=== PATIENT | female | born 2005 ===

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

== ENCOUNTER 2025-02-01 14:29 | Outpatient (AMB) | payer OTHER, SELFPAY ==
--- NOTE | 2025-02-01 14:32 | MHC.OFFVIS ---
Vital Signs 02/01/25 14:34 Height 5 ft 4 in Weight 214 lb 15.211 oz BMI 36.9 BP 123/74 Blood Pressure Location Lt brachial Pulse 83 Pulse Source Pulse Oximeter Pulse Oximetry (%) 98 Oxygen Delivery Method Room Air Intake Visit Reasons: Pituitary adenoma Intake Note: New patient present today for Pituitary adenoma office visit. Quiller Operator Required: No Accompanied by: Mother Allergies No Known Allergies (No Known Allergies*) Allergy (Verified 02/01/25 14:37) Medication List - Last Reconciled 02/01/25 by Guadalupe Hardin MD ibuprofen 400 mg PO Q6H PRN prochlorperazine maleate 10 mg PO Q6H PRN HPI Comments Details: 19-year-old female coming in today for initial evaluation of pituitary microadenoma. Here today with grandmother Jennyfer. She was hospitalized at [facility] from 10/29/2024 to 11/01/2024 when she presented for dizziness, nausea, vomiting, with the MRI findings consistent with a demyelinating lesions concerning for multiple sclerosis. She was initially seen at another hospital in September 2024 for these symptoms with a an unremarkable CT scan but did have supratentorial and infratentorial FLAIR changes on MRI without gadolinium on 10/16 but then she left A. She presented to [facility] emergency room 10/25/2024 with persistent symptoms. MRI with and without gadolinium showed multiple white matter lesions, CSF studies not concerning for infection. Patient was treated with high dose IV Solu-Medrol for 5 days with the improvement in her symptoms at the time of discharge. She is now seeing neurology at [facility] Dr. Nessa Hammer , last seen November 2024. Diagnosed with MS. started on ocrevus infusion. plan is for every 6 months treatment. MRI brain from 10/26/2024 showed a incidental 4 mm hypoenhancing focus in the pituitary gland suspicious for pituitary microadenoma. No suprasellar or cavernous sinus extension. Vision changes: blurry vision. improved with treatment for MS Headache: some intermittent headaches since early in 2024, resolve with ibuprofen Nipple discharge: none Trial Judge history: LMP: 3 years ago , on Depo shots, gets it every 3 months from PCP Pregnancies : 0 Currently sexually active Change in sense of smell:feels there has been decreased intensity Change in ring size: doesnt wear a ring Change in shoe size: none Reports night sweats. Patient currently denies heat or cold intolerance, diarrhea or constipation, hair loss, palpitation, anxiety, weight changes, mood changes, tremors,or dry skin. Reports tiredness ? Numbness in extremities resolved with MS trx. Easy bruising: yes Proximal muscle weakness: none No DM, HTN, fractures Nausea: yes in the morning , on antinausea meds Vomiting:none Lightheadedness: none Weight: no changes Physical exam General: sitting comfortably in no acute distress HEENT: normocephalic/atraumatic Neck: supple, symmetrical, no thyromegaly , Cardiac: normal heart sounds Pulm: normal breath sounds B/L, no added breath sounds Abd: not distended, no tenderness, striae noted but not thick or purple Extremities: no edema, no signs of myxedema [facility] Medical History (Updated 02/01/25 @ 15:10 by Guadalupe Hardin MD) Pituitary microadenoma Asthma Multiple sclerosis Family History (Updated 02/01/25 @ 14:42 by Gwendolyn Peter CMA) Mother Diabetes Hypertension Maternal Aunt Hodgkin disease Social History Alcohol intake: never Substance Use Type: Marijuana Physical Exam Vital Signs: Last Vital Signs Pulse 83 02/01/25 14:34 BP 123/74 02/01/25 14:34 Pulse Ox 98 02/01/25 14:34 Oxygen Delivery Method Room Air 02/01/25 14:34 BMI result Body Mass Index 36.9 Assessment & Plan Assessment & Plan (1) Pituitary microadenoma: Code(s): D35.2 - Benign neoplasm of pituitary gland Category: Medical Plan: 19-year-old female coming in today for initial evaluation of pituitary incidentaloma. MRI brain from 10/26/2024 showed a incidental 4 mm hypoenhancing focus in the pituitary gland suspicious for pituitary microadenoma. No suprasellar or cavernous sinus extension. She also has a new diagnosis of multiple sclerosis, undergoing treatment with neurology at [facility]. Given small size of the adenoma, no need for visual field evaluation, she did have some blurry vision at the time of onset of her MS episode, which has now resolved. She does complain of some intermittent headaches. However for pituitary microadenoma we do not need visual field evaluation in the absence of gross visual field defects. We will plan to repeat imaging in 1 year from the last 1 which should be around October 2025. For evaluation of hormonal secretion, we will check 24 hour urine cortisol levels. She does have some abdominal striae though not thick or purple. However BMI is in the obesity range, but no history of diabetes or hypertension, no fractures. She is on medroxyprogesterone IM every 3 months. We will check a 24 hour urine cortisol level. We will check prolactin, growth hormone level, FSH LH, estradiol however we have to keep in mind she is on progesterone intramuscularly. We will check a.m. ACTH and cortisol. No recent steroid use the last time she received IV Solu-Medrol was for 5 days in October 2024. I explained to the patient that Incidentally discovered sellar masses >10 mm in diameter are more likely to grow than those <10 mm. Plan: -ordered 08:00 labs including ACTH, cortisol, prolactin, IGF, growth hormone, FSH, LH, estradiol, TSH, free T4 -ordered 24 hour urine cortisol and creatinine -follow up in 2-3 weeks to discuss results -we will plan to do MRI of the pituitary in 1 year from last 1 which would be in October 2025 Plan I spent 45 minutes in reviewing the record, seeing the patient and documenting in the medical record. Orders: Orders Cortisol Random Today D35.2 - Benign neoplasm of pituitary gland DHEA Sulfate Today D35.2 - Benign neoplasm of pituitary gland Follicle Stimulating Hormone Today D35.2 - Benign neoplasm of pituitary gland Prolactin Today D35.2 - Benign neoplasm of pituitary gland Estradiol Ultra Sensitive Today D35.2 - Benign neoplasm of pituitary gland Lutenizing Hormone Today D35.2 - Benign neoplasm of pituitary gland Human Growth Hormone Today D35.2 - Benign neoplasm of pituitary gland IGF-1 (Somatomedin C) Today D35.2 - Benign neoplasm of pituitary gland Thyroid Stimulating Hormone Today D35.2 - Benign neoplasm of pituitary gland Cortisol, Free 24Hr Urine Today D35.2 - Benign neoplasm of pituitary gland Creatinine, 24 Hr Group Today D35.2 - Benign neoplasm of pituitary gland Adrenocorticotropic Hormone Today D35.2 - Benign neoplasm of pituitary gland Free T4 (Free Thyroxine) Today D35.2 - Benign neoplasm of pituitary gland Patient Instructions: Do 08:00 blood work this week Also please do 24 hour urine collection this week instructions provided below 24 hr urine collection instructions You have been asked to collect your urine for 24 hours to assess for cortisol excretion. You must choose a 24 hour period of time when you will be home. The morning of the first day, DISCARD the FIRST morning void and then note the time. You will collect every single void from then on for 24 hours. For example, if you wake up at 6am and urinate, flush down that void. You will then collect every drop of urine all day and all night through 6am the following day. You will urinate one last time at 6am for the collection. The jug of urine must be kept in the refrigerator until you bring it to the lab. Coding Level of Care Code New Pt Level 4 (96851) Diagnoses Pituitary microadenoma D35.2 Time Spent (min) 45
[2025-02-01 14:34] VITALS: BP 123/74; PULSE 83; O2SAT 98; BMI 36.9
--- OUTSIDE RECORDS SUMMARY | 2025-02-01 17:22 | XMS_ITS ---
Author Name [facility] Organization Unknown Results Test Name/Text Value Interpretation Date Range Source LUIS MIGUEL virus Ab Index SerPl IA-aCnc 2.8 Above high normal 11/18/2024 CT_[facility]SFRA N JCPyV Ab SerPl Ql IA POSITIVE Abnormal 11/18/2024 CT_[facility]SFRAN ROMY SM IgG Ser IA-aCnc <0.7 11/16/2024 [facility] ROMY Jo1 Ab Ser IA-aCnc <0.3 11/16/2024 CT_[facility]SFRAN U1 snRNP IgG Ser IA-aCnc 0.6 U/mL 11/16/2024 - [facility] ROMY SS-B IgG Ser IA-aCnc <0.4 11/16/2024 [facility]AN ROMY Scl70 IgG Ser IA-aCnc <0.6 11/16/2024 [facility] ROMY SS-A Ab Ser IA-aCnc <0.4 11/16/2024 [facility]SFRAN RAMOS Pat Ser IF-Imp Homogeneous Abnormal 11/15/2024 [facility]AN RAMOS Titr Ser HEp2 subst 1:320 Abnormal 11/15/2024 - [facility] RAMOS Ser Ql HEp2 subst Positive Abnormal 11/15/2024 - CT_[facility]AN HIV 1+2 Ab+HIV1 p24 Ag SerPl Ql IA Negative 11/12/2024 - [facility]AN RPR Ser Ql Nonreactive 11/12/2024 - CT_[facility]S LEESA B burgdor IgG Ser Ql Negative 11/11/2024 - CT_[facility]SFRAN B burgdor IgM Ser Ql Negative 11/11/2024 - CT_[facility]SFRAN TSH SerPl DL<=0.005 mIU/L-aCnc 0.72 mcIU/mL 11/11/2024 0.45 - 5.33 CT_THSFRAN 25(OH)D3 SerPl-mCnc <10.0 ng/mL Below low normal 11/11/2024 30 - 100 CT_[facility]SFRAN Vit B12 SerPl-mCnc 195.0 pcg/mL 11/11/2024 180 - 914 CT_THSFRAN Rheumatoid fact SerPl-aCnc <10.0 I Unit/mL 11/11/2024 - CT_THSFRAN History of Medication Use Medication Directions Dispensed Refills Start Date End Date Stat us ibuprofen (ADVIL,MOTRIN) 400 mg tablet Take 1 tablet (400 mg total) by mouth every 6 (six) hours if needed for mild pain. active meclizine (ANTIVERT) 12.5 mg tablet Take 1 tablet (12.5 mg total) by mouth 3 (three) times a day if needed for dizziness. active ondansetron (ZOFRAN) 4 mg tablet Take 1 tablet (4 mg total) by mouth every 8 (eight) hours if needed for nausea or vomiting. active Problems Problem Status Onset Date Problem Type Date of Resolution Source Vitamin B12 deficiency active EncounterDiagnosisAct CT_[facility]S LEESA Demyelinating changes in brain ([facility] V24, [facility] V28) active EncounterDiagnosisAct C T_THSFRAN Hyporeflexia active EncounterDiagnosisAct CT_THSFRAN Routine screening for STI (sexually transmitted infection) active EncounterDiagnosisAct CT_[facility]S LEESA Vitamin D insufficiency active EncounterDiagnosisAct CT_TH SFRAN Risk of exposure to Lyme disease active EncounterDiagnosisAct CT_THS LEESA Multiple sclerosis ([facility] V24, [facility] V28) active EncounterDiagnosisAct CT_[facility]S LEESA Abnormal tandem gait test active EncounterDiagnosisAct CT_[facility]S LEESA Encounter for screening for human immunodeficiency virus (HIV) active EncounterDiagnosisAct CT_THS LEESA Encounters Encounter Type Encounter Reason Primary Diagnosis Location Date Ambulatory Multiple Sclerosis Multiple scle rosis ([facility] V24, [facility] V28) [facility] 11/11/2024 Care Team Organization Name Specialty Phone Email Start Date End Da te [facility] 11/12/2024 [facility] 11/11/2024
--- OUTSIDE RECORDS SUMMARY | 2025-02-01 17:22 | XMS_ITS | Clinical Summary ---
Author Organization [address] Address [address] [place] [address] Phone Care Team Providers Care [employer] Member Name Role Phone Leanna Burt [facility] Primary Care Provider [phone] Allergies No known active allergies Medications meclizine (ANTIVERT) 12.5 mg tablet Take 1 tablet (12.5 mg total) by mouth 3 (three) times a day if needed for dizziness. Active ibuprofen (ADVIL,MOTRIN) 400 mg tablet Take 1 tablet (400 mg total) by mouth every 6 (six) hours if needed for mild pain. Active ergocalciferol (Vitamin D2) 1,250 mcg (50,000 unit) capsuleIndicati ons:Vitamin D deficiency Take 1 capsule (50,000 Units total) by mouth 1 (one) time per week for 12 doses. 12 each 11/12/2024 01/30/20 25 Active Problems Problem Noted Date Diagnosed Date MS (multiple sclerosis) 01/13/2025 Encounters Date Type Department Care Team Description 01/20/2025 8:00 AM EDT - 01/20/2025 11:59 PM EDT Hospital Encounter [facility] Outpatient Rehabilititation [facility] [address] [place] [phone] MS (multiple sclerosis) (Primary Dx) Discharge Disposition: Home or Self Care 12/09/2024 Telephone [facility] Outpatient Rehabilititation [facility] [address] [place] [phone] Carl Hammer MD 12/08/2024 3:05 PM EDT Lab Draw Station - 175 [facility] 175 [facility] [address] [place] [phone] Multiple sclerosis ([facility] V24, [facility] V28) 12/08/2024 2:00 PM EDT Office Visit [facility] [address] [facility] [address] [place] [phone] Carl Hammer MD Multiple sclerosis ([facility] V24, [facility] V28) (Primary Dx) 12/08/[address] [facility] 175 [facility] [address] [place] [phone] Carl Hammer MD 11/11/2024 2:00 PM EDT Office Visit [address] [phone] Robert Watters MD Multiple sclerosis ([facility] V24, [facility] V28) (Primary Dx); Demyelinating changes in brain ([facility] V24, [facility] V28); Abnormal tandem gait test; Hyporeflexia; Vitamin D insufficiency; Vitamin B12 deficiency; Encounter for screening for human immunodeficiency virus (HIV); Routine screening for STI (sexually transmitted infection); Risk of exposure to Lyme disease from Last 3 Months Medical History Medical History Date Comments Asthma Family History Medical History Relation Name Comments Diabetes Maternal Grandmother Relation Name Status Comments Maternal Grandmother Social History Tobacco Use Types Packs/Day Years Used Date Smoking Tobacco: Never Smokeless Tobacco: Never Tobacco Cessation:Counseling Given: Not Answered Alcohol Use Standard Drinks/Week Comments Not Currently 0 (1 standard drink = 0.6 oz pur e alcohol) Comments Unknown Sex and Gender Information Value Date Recorded Sex Assigned at Not on file Legal Sex Female 9:53 AM EDT Gender Identity Not on file Sexual Orientation Not on file Obstetrics History Growth Chart Information Age Height Weight [id number]-[id number]-[id number] th Percentile BMI Percentile Head Circum Head Circum Percentile Date 19 years 162.6 cm (5' 4 ) 98 kg (216 lb) 97.66%* 2024 19 years 162.6 cm (5' 4 ) 88.5 kg (195 lb) 96.04%* 2024 * [facility] (Girls, 2-20 Years) Last Filed Vital Signs Vital Sign Reading Time Taken Comments Blood Pressure 109/69 01/20/2025 12:55 PM EDT Pulse 73 01/20/2025 12:55 PM EDT Temperature 36.4 C (97.6 F) 01/20/2025 12:55 PM EDT Respiratory Rate 17 01/20/2025 12:55 PM EDT Oxygen Saturation 96% 01/20/2025 12:55 PM EDT Inhaled Oxygen Concentration - - Weight 98 kg (216 lb) 12/08/2024 2:09 PM EDT Height 162.6 cm (5' 4 ) 12/08/2024 2:09 PM EDT Body Mass Index 37.08 12/08/2024 2:09 PM EDT Plan of Treatment Upcoming Encounters Date Type Department Care Team (Late st Contact Info) Description 02/08/2025 8:00 AM EDT Appointment [facility] Outpatient Rehabilititation - [address] [phone] 03/15/2025 3:30 PM EST Office Visit [facility] - [address] [phone] Carl Hammer MD [address] [place] [phone] Health Maintenance Due Date Last Done Comments Gonorrhea/Chlamydia Screening 2005 Varicella Vaccines (1 of 2 - 13+ 2-dose series) 2018 HPV Vaccines (1 - 3-dose series) 2020 Meningococcal B Vaccine (1 o f 2 - Standard) 2021 DTaP,Tdap,and Td Vaccines (1 - Tdap) 2024 Hepatitis B Vaccines (1 of 3 - 19+ 3-dose series) 2024 Depression Screening 04/21/2024 Annual Well Child Visit (3-2 1 years old) 11/02/2024 Social Influencers of Health Screening 11/02/2024 COVID-19 Vaccine (1 - 2023-2 5 season) 2024 Influenza Vaccine (#1) 2024 RSV Immunization Adult Patie nts (1 - 1-dose 75+ series) 2080 HIV Screening Completed 11/11/2024 Hepatitis C Screening Completed 12/08/2024 HIB Vaccines Aged Out No longer eligi ble based on patient's age to complete this topic Hepatitis A Vaccines Aged Out No long er eligible based on patient's age to complete this topic IPV Vaccines Aged Out No longer eligi ble based on patient's age to complete this topic MMR Vaccines Aged Out No longer eligi ble based on patient's age to complete this topic Meningococcal ACWY Vaccine Aged Out N o longer eligible based on patient's age to complete this topic Pneumococcal Vaccine: Pediat rics (0 to 5 Years) and At-Risk Patients (6 to 49 Years) Aged Out No longer eligi ble based on patient's age to complete this topic RSV Immunization Patients Un aixa 20 months Aged Out No longer eligible b ased on patient's age to complete this topic Procedures Procedure Name Priority Date/Time Associated Diagnosis Comments CBC WITH AUTO DIFFERENTIAL Routine 01/20/2025 8:24 AM EDT CBC AND DIFFERENTIAL Routine 01/20/2025 8:24 AM EDT HEPATIC FUNCTION PANEL Routine 8:24 AM EDT CREATININE, SERUM Routine 01/20/2025 8:2 4 AM EDT BUN Routine 01/20/2025 8:24 AM EDT INTERFERON GAMMA INTERPRETATION Routine 12/08/2024 3:06 PM EDT Multiple sclerosis (CMS/HCC V24, CMS/HCC V28) CBC WITH AUTO DIFFERENTIAL Routine 12/08/2024 3:06 PM EDT Multiple sclerosis (CMS/HCC V24, CMS/HCC V28) INTERFERON GAMMA ANTIGEN 2 Routine 12/08/2024 3:06 PM EDT Multiple sclerosis (CMS/HCC V24, CMS/HCC V28) INTERFERON GAMMA ANTIGEN 1 Routine 12/08/2024 3:06 PM EDT Multiple sclerosis (CMS/HCC V24, CMS/HCC V28) INTERFERON GAMMA MITOGEN Routine 12/08/2024 3:06 PM EDT Multiple sclerosis (CMS/HCC V24, CMS/HCC V28) INTERFERON GAMMA NIL Routine 12/08/2024 3:06 PM EDT Multiple sclerosis (CMS/HCC V24, CMS/HCC V28) CBC AND DIFFERENTIAL Routine 12/08/2024 3:06 PM EDT Multiple sclerosis (CMS/HCC V24, CMS/HCC V28) CREATININE, SERUM Routine 12/08/2024 3:0 6 PM EDT Multiple sclerosis (CMS/HCC V24, CMS/HCC V28) BUN Routine 12/08/2024 3:06 PM EDT Multiple sclerosis (CMS/HCC V24, CMS/HCC V28) HEPATITIS C ANTIBODY Routine 12/08/2024 3:06 PM EDT Multiple sclerosis (CMS/HCC V24, CMS/HCC V28) HEPATITIS B CORE ANTIBODY IGM Routine 12/08/2024 3:06 PM EDT Multiple sclerosis (CMS/HCC V24, CMS/HCC V28) HEPATITIS B SURFACE ANTIGEN WITH CONFIRMATION Routine 12/08/2024 3:06 PM EDT Multiple sclerosis (CMS/HCC V24, CMS/HCC V28) VARICELLA ZOSTER ANTIBODY IGG Routine 12/08/2024 3:06 PM EDT Multiple sclerosis (CMS/HCC V24, CMS/HCC V28) IMMUNOGLOBULIN IGA Routine 12/08/2024 3: 06 PM EDT Multiple sclerosis (CMS/HCC V24, CMS/HCC V28) IMMUNOGLOBULIN IGG Routine 12/08/2024 3: 06 PM EDT Multiple sclerosis (CMS/HCC V24, CMS/HCC V28) IMMUNOGLOBULIN IGM Routine 12/08/2024 3: 06 PM EDT Multiple sclerosis (CMS/HCC V24, CMS/HCC V28) INTERFERON GAMMA FOR TB, QUALITATIVE Routine 12/08/2024 3:06 PM EDT Multiple sclerosis ([facility]/HCC V24, CMS/HCC V28) JCV POLYOMA VIRUS ANTIBODY WITH REFLEX TO INHIBITION ASSAY Routine 11/11/2024 2:47 PM EDT Demyelinating changes in brain ([facility]/HCC V24, CMS/HCC V28) Abnormal tandem gait test Hyporeflexia Vitamin D insufficiency Vitamin B12 deficiency Encounter for screening for human immunodeficiency virus (HIV) Routine screening for STI (sexually transmitted infection) Risk of exposure to Lyme disease Multiple sclerosis ([facility] V24, CMS/[facility] V28) EXTRACTABLE NUCLEAR ANTIBODIES PROFILE Routine 11/11/2024 2:47 PM EDT Demyelinating changes in brain ([facility] V24, CMS/HCC V28) Abnormal tandem gait test Hyporeflexia Vitamin D insufficiency Vitamin B12 deficiency Encounter for screening for human immunodeficiency virus (HIV) Routine screening for STI (sexually transmitted infection) Risk of exposure to Lyme disease Multiple sclerosis ([facility] V24, CMS/[facility] V28) RAMOS IFA WITH TITER AND PATTERN Routine 11/11/2024 2:47 PM EDT Demyelinating changes in brain (CMS/HCC V24, CMS/HCC V28) Abnormal tandem gait test Hyporeflexia Vitamin D insufficiency Vitamin B12 deficiency Encounter for screening for human immunodeficiency virus (HIV) Routine screening for STI (sexually transmitted infection) Risk of exposure to Lyme disease Multiple sclerosis ([facility] V24, CMS/[facility] V28) THYROID STIMULATING HORMONE Routine 11/11/2024 2:47 PM EDT Demyelinating changes in brain (CMS/HCC V24, CMS/HCC V28) Abnormal tandem gait test Hyporeflexia Vitamin D insufficiency Vitamin B12 deficiency Encounter for screening for human immunodeficiency virus (HIV) Routine screening for STI (sexually transmitted infection) Risk of exposure to Lyme disease Multiple sclerosis ([facility] V24, CMS/HCC V28) VITAMIN D 25 HYDROXY Routine 11/11/2024 2:47 PM EDT Demyelinating changes in brain (CMS/HCC V24, CMS/[facility] V28) Abnormal tandem gait test Hyporeflexia Vitamin D insufficiency Vitamin B12 deficiency Encounter for screening for human immunodeficiency virus (HIV) Routine screening for STI (sexually transmitted infection) Risk of exposure to Lyme disease Multiple sclerosis ([facility] V24, [facility]/HCC V28) BORRELIA BURGDORFERI ANTIBODIES, IGG AND IGM WITH REFLEX TO IMMUNOBLOT Routine 11/11/2024 2:47 PM EDT Demyelinating changes in brain ([facility] V24, CMS/[facility] V28) Abnormal tandem gait test Hyporeflexia Vitamin D insufficiency Vitamin B12 deficiency Encounter for screening for human immunodeficiency virus (HIV) Routine screening for STI (sexually transmitted infection) Risk of exposure to Lyme disease Multiple sclerosis ([facility] V24, CMS/[facility] V28) RHEUMATOID FACTOR Routine 11/11/2024 2:4 7 PM EDT Demyelinating changes in brain ([facility] V24, [facility] V28) Abnormal tandem gait test Hyporeflexia Vitamin D insufficiency Vitamin B12 deficiency Encounter for screening for human immunodeficiency virus (HIV) Routine screening for STI (sexually transmitted infection) Risk of exposure to Lyme disease Multiple sclerosis ([facility] V24, CMS/[facility] V28) VITAMIN B12 Routine 11/11/2024 2:47 PM EDT Demyelinating changes in brain ([facility] V24, CMS/[facility] V28) Abnormal tandem gait test Hyporeflexia Vitamin D insufficiency Vitamin B12 deficiency Encounter for screening for human immunodeficiency virus (HIV) Routine screening for STI (sexually transmitted infection) Risk of exposure to Lyme disease Multiple sclerosis ([facility] V24, [facility] V28) HIV 1, 2 ANTIBODY, P24 ANTIGEN WITH REFLEX TO DIFFERENTIATION Routine 11/11/2024 2:47 PM EDT Demyelinating changes in brain ([facility] V24, CMS/[facility] V28) Abnormal tandem gait test Hyporeflexia Vitamin D insufficiency Vitamin B12 deficiency Encounter for screening for human immunodeficiency virus (HIV) Routine screening for STI (sexually transmitted infection) Risk of exposure to Lyme disease Multiple sclerosis ([facility] V24, CMS/[facility] V28) RAPID PLASMA REAGIN WITH REFLEX TO TITER AND TREPONEMA PALLIDUM ANTIBODY Routine 11/11/2024 2:47 PM EDT Demyelinating changes in brain ([facility] V24, [facility] V28) Abnormal tandem gait test Hyporeflexia Vitamin D insufficiency Vitamin B12 deficiency Encounter for screening for human immunodeficiency virus (HIV) Routine screening for STI (sexually transmitted infection) Risk of exposure to Lyme disease Multiple sclerosis ([facility] V24, [facility] V28) from Last 3 Months Results * (ABNORMAL) CBC auto differential (01/20/2025 8:24 AM EDT) Only the most recent of2 resultswithin the time period is included. [facility] WBC 8.7 4.8 - 10.8 K/mcL LAB HEMETOLOGY METHOD 01/20/2025 10:02 AM [facility] RBC 4.60 3.80 - 4.80 M/mcL LAB HEMETOLOGY METHOD 01/20/2025 10:02 AM [facility] Hemoglobin 13.9 11.5 - 16.0 g/dL LAB HEMETOLOGY METHOD 01/20/2025 10:02 AM [facility] Hematocrit 42.1 35.0 - 47.0 % LAB HEMETOLOGY METHOD 01/20/2025 10:02 AM [facility] MCV 91.7 79.0 - 98.0 FL LAB HEMETOLOGY METHOD 01/20/2025 10:02 AM [facility] MCH 30.3 27.0 - 32.0 pcg LAB HEMETOLOGY METHOD 01/20/2025 10:02 AM [facility] MCHC 33.0 32.0 - 37.0 g/dL LAB HEMETOLOGY METHOD 01/20/2025 10:02 AM [facility] RDW 13.5 11.0 - 15.0 % LAB HEMETOLOGY METHOD 01/20/2025 10:02 AM [facility] Platelets 268 130 - 400 K/mcL LAB HEMETOLOGY METHOD 01/20/2025 10:02 AM [facility] MPV 11.2(H) 7.0 - 11.0 FL LAB HEMETOLOGY METHOD 01/20/2025 10:02 AM [facility] NRBC 0.0 <1.0 % LAB HEMETOLOGY METHOD 01/20/2025 10:02 AM [facility] NRBC Absolute 0.00 <0.10 K/mcL LAB HEMETOLOGY METHOD 01/20/2025 10:02 AM [facility] Neutrophils Relative 67.6 % LAB HEMETOLOGY METHOD 01/20/2025 10:02 AM [facility] Lymphocytes Relative 24.1 % LAB HEMETOLOGY METHOD 01/20/2025 10:02 AM [facility] Monocytes Relative 6.7 % LAB HEMETOLOGY METHOD 01/20/2025 10:02 AM [facility] Eosinophils Relative 0.8 % LAB HEMETOLOGY METHOD 01/20/2025 10:02 AM [facility] Basophils Relative 0.3 % LAB HEMETOLOGY METHOD 01/20/2025 10:02 AM [facility] Immature Granulocytes Relative 0.5 % LAB HEMETOLOGY METHOD 01/20/2025 10:02 AM [facility] Neutrophils Absolute 5.88 1.50 - 7.00 K/mcL LAB HEMETOLOGY METHOD 01/20/2025 10:02 AM [facility] Lymphocytes Absolute 2.10 1.00 - 5.00 K/mcL LAB HEMETOLOGY METHOD 01/20/2025 10:02 AM [facility] Monocytes Absolute 0.58 0.20 - 1.00 K/mcL LAB HEMETOLOGY METHOD 01/20/2025 10:02 AM [facility] Eosinophils Absolute 0.07 0.00 - 0.50 K/mcL LAB HEMETOLOGY METHOD 01/20/2025 10:02 AM EDT [facility] Basophils Absolute 0.03 0.00 - 0.20 K/[facility] LAB HEMETOLOGY METHOD 01/20/2025 10:02 AM EDT [facility] Immature Granulocytes Absolute 0.04(H) 0.00 - 0.03 K/[facility] LAB HEMETOLOGY METHOD 01/20/2025 10:02 AM EDT [facility] Blood Venous blood specimen / Unknown Venipuncture / Unknown 01/20/2025 8:24 AM EDT 01/20/2025 8:24 AM EDT [email or web address] LAB BLOOD ORDERABLES Final R esult Performing Organization Address [facility] de Phone Number [facility] [address] [place] [address], * Creatinine (01/20/2025 8:24 AM EDT) Only the most recent of2 resultswithin the time period is included. Creatinine 0.61 0.50 - 1.10 mg/dL LAB CHEMISTRY METHOD 01/20/2025 10:54 AM EDT [facility] eGFR 132 >=60 mL/min/1. 73m2 LAB CHEMISTRY METHOD 01/20/2025 10:54 AM EDT [facility] Comment:Calculation based on the Chronic Kidney Disease Epidemiology Collaboration (CKD-EPI) equation refit without adjustment for race. Blood Venous blood specimen / Unknown Venipuncture / Unknown 01/20/2025 8:24 AM EDT 01/20/2025 8:24 AM EDT Nicole Pee [email or web address] LAB BLOOD ORDERABLES Final R esult Performing Organization Address [facility]/ZIP Co de Phone Number [facility] [address] [place] [address], * BUN (01/20/2025 8:24 AM EDT) Only the most recent of2 resultswithin the time period is included. [facility] BUN 11 5 - 25 mg/dL LAB CHEMISTRY METHOD 01/20/2025 10:54 AM T [facility] Blood Venous blood specimen / Unknown Venipuncture / Unknown 01/20/2025 8:24 AM EDT 01/20/2025 8:24 AM EDT Nicole GARCIA LAB BLOOD ORDERABLES Final R esult [facility] [address] [place] [address], * Hepatic function panel (01/20/2025 8:24 AM EDT) [facility] Total Protein 6.7 6.0 - 8.0 g/dL LAB CHEMISTRY METHOD 01/20/2025 10:56 AM [facility] Albumin 4.1 3.2 - 5.0 g/dL LAB CHEMISTRY METHOD 01/20/2025 10:56 AM [facility] Total Bilirubin 0.6 0.0 - 1.4 mg/dL LAB CHEMISTRY METHOD 01/20/2025 10:56 AM [facility] Bilirubin, Direct 0.1 0.0 - 0.3 mg/dL LAB CHEMISTRY METHOD 01/20/2025 10:56 AM [facility] Bilirubin, Indirect 0.5 0.0 - 1.1 mg/dL LAB CHEMISTRY METHOD 01/20/2025 10:56 AM [facility] ALT (SGPT) 21 10 - 60 unit/L LAB CHEMISTRY METHOD 01/20/2025 10:56 AM [facility] AST (SGOT) 17 10 - 42 unit/L LAB CHEMISTRY METHOD 01/20/2025 10:56 AM EDT [facility] Alkaline Phosphatase 82 42 - 121 unit/L LAB CHEMISTRY METHOD 01/20/2025 10:56 AM EDT [facility] Blood Venous blood specimen / Unknown Venipuncture / Unknown 01/20/2025 8:24 AM EDT 01/20/2025 8:24 AM EDT Nicole GARCIA LAB BLOOD ORDERABLES Final R esult Performing Organization Address [facility] de Phone Number [facility] [address] [place] [address], [place] [phone] * Hepatitis C antibody (12/08/2024 3:06 PM EDT) [facility] Hepatitis C Antibody Negative Negative LAB CHEMISTRY METHOD 12/08/2024 8:17 PM EDT [facility] Blood Venous blood specimen / Unknown Venipuncture / Unknown 12/08/2024 3:06 PM EDT 12/08/2024 3:06 PM EDT us Carl Hammer MD LAB BLOOD ORDERABLES Fin al Result Performing Organization Address [facility] de Phone Number [facility] [address] [place] [address], [place] [phone] * Interferon gamma interpretation (12/08/2024 3:06 PM EDT) [facility] Quantiferon Plus Interpretation Negative Negative LAB CHEMISTRY METHOD 12/10/2024 9:29 AM EDT [facility] Blood Venous blood specimen / Unknown Venipuncture / Unknown 12/08/2024 3:06 PM EDT 12/08/2024 3:06 PM EDT us Carl Hammer MD LAB BLOOD ORDERABLES Fin al Result Performing Organization Address City/[facility]/ZIP Co de Phone Number [facility] [address] [place] [address], [place] [phone] * Interferon gamma antigen 2 (12/08/2024 3:06 PM EDT) Blood Venous blood specimen / Unknown Venipuncture / Unknown 12/08/2024 3:06 PM EDT 12/08/2024 3:06 PM EDT us Carl Hammer MD LAB BLOOD ORDERABLES Fin al Result [facility] [address] [place] [address], [place] [phone] * Interferon gamma antigen 1 (12/08/2024 3:06 PM EDT) Blood Venous blood specimen / Unknown Venipuncture / Unknown 12/08/2024 3:06 PM EDT 12/08/2024 3:06 PM EDT Carl Hammer MD LAB BLOOD ORDERABLES Fin al Result [facility] [address] [place] [address], [place] [phone] * Interferon gamma mitogen (12/08/2024 3:06 PM EDT) Blood Venous blood specimen / Unknown Venipuncture / Unknown 12/08/2024 3:06 PM EDT 12/08/2024 3:06 PM EDT us Carl Hammer MD LAB BLOOD ORDERABLES Fin al Result [facility] [address] [place] [address], [place] [phone] * Interferon gamma NIL (12/08/2024 3:06 PM EDT) Blood Venous blood specimen / Unknown Venipuncture / Unknown 12/08/2024 3:06 PM EDT 12/08/2024 3:06 PM EDT us Carl Hammer MD LAB BLOOD ORDERABLES Fin al Result Performing Organization Address [facility]/ZIP Co de Phone Number [facility] [address] [place] [address], [place] [phone] * Hepatitis B surface antigen with reflex to confirmation (12/08/2024 3:06 PM EDT) Hepatitis B Surface Ag Negative Negative LAB CHEMISTRY METHOD 12/08/2024 8:20 PM EDT [facility] Blood Venous blood specimen / Unknown Venipuncture / Unknown 12/08/2024 3:06 PM EDT 12/08/2024 3:06 PM EDT Anali [facility] - 12/08/2024 8:20 PM EDT Over the counter supplements containing high doses of biotin may interfere with this assay. If interference is suspected, patients shoud be retested after refraining from biotin supplements for 72 hours. us Carl Hammer MD LAB BLOOD ORDERABLES Fin al Result Performing Organization Address [facility] Co de Phone Number [facility] [address] [place] [address], [place] [phone] * Hepatitis B core antibody IgM (12/08/2024 3:06 PM EDT) Pathologist [facility] Hep B Core IgM Negative Negative LAB CHEMISTRY METHOD 12/08/2024 8:17 PM EDT [facility] Blood Venous blood specimen / Unknown Venipuncture / Unknown 12/08/2024 3:06 PM EDT 12/08/2024 3:06 PM EDT Anali [facility] - 12/08/2024 8:17 PM EDT Over the counter supplements containing high doses of biotin may interfere with this assay. If interference is suspected, patients shoud be retested after refraining from biotin supplements for 72 hours. us Carl Hammer MD LAB BLOOD ORDERABLES Fin al Result Performing Organization Address [facility] de Phone Number [facility] [address] [place] [address], [place] [phone] * (ABNORMAL) Varicella zoster antibody IgG (12/08/2024 3:06 PM EDT) Pathologist [facility] Varicella IgG Negative( A) Positive LAB CHEMISTRY METHOD 12/09/2024 9:25 AM EDT [facility] Varicella Zoster IgG 0.56(L) >=1.00 S/CO LAB CHEMISTRY METHOD 12/09/2024 9:25 AM EDT [facility] Blood Venous blood specimen / Unknown Venipuncture / Unknown 12/08/2024 3:06 PM EDT 12/08/2024 3:06 PM EDT Narrative [facility] - 12/09/2024 9:25 AM EDT Interpretation >= 1.00 S/CO is considered to be consistent with Immunity us Carl Hammer MD LAB BLOOD ORDERABLES Fin al Result Performing Organization Address [facility] de Phone Number [facility] [address] [place] [address], [place] [phone] * Immunoglobulin IgA (12/08/2024 3:06 PM EDT) Pathologist [facility] IgA 135 61 - 348 mg/dL LAB CHEMISTRY METHOD 12/08/2024 7:11 PM EDT [facility] Blood Venous blood specimen / Unknown Venipuncture / Unknown 12/08/2024 3:06 PM EDT 12/08/2024 3:06 PM EDT us Carl Hammer MD LAB BLOOD ORDERABLES Fin al Result Performing Organization Address City/[facility] de Phone Number [facility] [address] [place] [address], [place] [phone] * Immunoglobulin IgM (12/08/2024 3:06 PM EDT) Pathologist [facility] IgM 63 23 - 259 mg/dL LAB CHEMISTRY METHOD 12/08/2024 7:11 PM EDT [facility] Blood Venous blood specimen / Unknown Venipuncture / Unknown 12/08/2024 3:06 PM EDT 12/08/2024 3:06 PM EDT us Carl Hammer MD LAB BLOOD ORDERABLES Fin al Result [facility] [address] [place] [address], [place] [phone] * Immunoglobulin IgG (12/08/2024 3:06 PM EDT) [facility] Total IgG 667 549 - 1,584 mg/dL LAB CHEMISTRY METHOD 12/08/2024 7:11 PM EDT [facility] Blood Venous blood specimen / Unknown Venipuncture / Unknown 12/08/2024 3:06 PM EDT 12/08/2024 3:06 PM EDT us Carl Hammer MD LAB BLOOD ORDERABLES Fin al Result [facility] [address] [place] [address], [place] [phone] * HIV 1,2 antibody, p24 antigen with reflex to differentiation (11/11/2024 2:47 PM EDT) [facility] HIV Combo AB/AG Negative Negative LAB CHEMISTRY METHOD 11/11/2024 10:08 PM EDT [facility] Blood Venous blood specimen / Unknown Venipuncture / Unknown 11/11/2024 2:47 PM EDT 11/11/2024 2:51 PM EDT Narrative [facility] - 11/11/2024 10:08 PM EDT Nonreactive result does not rule out HIV infection. Robert Watters MD LAB BLOOD ORDERABLES Final Result Performing Organization Address City/[facility]/ZIP Co de Phone Number [facility] [address] [place] [address], [place] [phone] * Rapid plasma reagin with reflex to titer and treponema pallidum antibody (11/11/2024 2:47 PM EDT) Pathologist [facility] RPR Nonreactive Nonreactive 11/11/2024 8:28 PM EDT [facility] Blood Venous blood specimen / Unknown Venipuncture / Unknown 11/11/2024 2:47 PM EDT 11/11/2024 2:51 PM EDT Robert Watters MD LAB BLOOD ORDERABLES Final Result Performing Organization Address [facility]/ZIP Co de Phone Number [facility] [address] [place] [address], [place] [phone] * (ABNORMAL) JCV polyoma virus antibody with reflex to inhibition assay (11/11/2024 2:47 PM EDT) Index Value 2.80(H) 11/17/2024 10:56 PM EDT [facility] JCV Antibody POSITIVE( A) 11/17/2024 10:56 PM EDT [facility] Comment: Index interpretive criteria: <0.20 negative 0.20-0.40 indeterminate >0.40 positive INTERPRETATION Negative: Antibodies to JCV not detected. Indeterminate: Low level reactivity detected, see Inhibition Assay result below for the final antibody result. Positive: Antibodies to LUIS MIGUEL virus (JCV) detected indicating the patient has been exposed to JCV at an undetermined time. The STRATIFY JCV(R) DxSelect(TM) Antibody Test is an enzyme-linked immunosorbent assay (RAVINDRA) designed to detect JCV antibodies to help identify individuals who have been exposed to the virus. Samples with low level reactivity in the detection assay are retested in a confirmation (inhibition) assay to confirm presence or absence of JCV-specific antibodies. Retrospective analyses of post marketing data from various sources, including observational studies and spontaneous reports obtained worldwide, suggest that the risk of developing PML may be associated with relative levels of serum anti-JCV antibody as measured by anti-JCV antibody index.(1) (1) TYSABRI(natalizumab)US Prescribing Information Test performed by [facility]) [address] [place] [address] Optical Glass Wet Inspector: Pepper Ovalle MD,PHD,JASMIN Test Reported by [facility], [facility]), [address] [place] [address] Sin Thomas M.D., Ph.D., Director of Laboratories , [facility] [id number] Blood Venous blood specimen / Unknown Venipuncture / Unknown 11/11/2024 2:47 PM EDT 11/11/2024 2:51 PM EDT Narrative [facility] - 11/17/2024 10:56 PM EDT Performing Organization Information: Site ID: [id number] Name: [facility] Address: [address] [place] [address] Director: Sin Thomas MD PhD Robert Watters MD LAB BLOOD ORDERABLES Final Result [facility] [address] [phone] * Extractable Nuclear Antibodies Profile (11/11/2024 2:47 PM EDT) PUBLIC HEALTH SANITARIAN TECHNICIAN Antibody 0.6 <5.0 U/mL 11/16/2024 7:14 AM EDT [facility] Comment:INTERPRETATION: Nega tive Sm (Alvarez) Antibody <0.7 <7.0 U/mL 11/16/2024 7:14 AM EDT [facility] Comment:INTERPRETATION: Nega tive SS-A Antibody <0.4 <7.0 U/mL 11/16/2024 7:14 AM EDT [facility] Comment:INTERPRETATION: Nega tive SS-B Antibody <0.4 <7.0 U/mL 11/16/2024 7:14 AM EDT [facility] Comment:INTERPRETATION: Nega tive Scleroderma (SCL-70) Antibody <0.6 <7.0 U/mL 11/16/2024 7:14 AM EDT [facility] Comment:INTERPRETATION: Nega tive SHAWN-1 IgG Antibody <0.3 <7.0 U/mL 11/16/2024 7:14 AM EDT [facility] Comment: INTERPRETATION: Negative Test performed at [facility], [address], [place] [address] Thuy Jj MD, PhD - Optical Glass Wet Inspector Blood Venous blood specimen / Unknown Venipuncture / Unknown 11/11/2024 2:47 PM EDT 11/11/2024 2:51 PM EDT Robert Watters MD LAB BLOOD ORDERABLES Final Result [facility] [address] [place] [address] * Borrelia burgdorferi antibodies, IGG and IGM with reflex to immunoblot (11/11/2024 2:47 PM EDT) [facility] Lyme IgG Antibody Negative Negative LAB MICROBIOLOGY METHOD 11/11/2024 7:53 PM EDT [facility] Lyme IgM Antibody Negative Negative LAB MICROBIOLOGY METHOD 11/11/2024 7:53 PM EDT [facility] Blood Venous blood specimen / Unknown Venipuncture / Unknown 11/11/2024 2:47 PM EDT 11/11/2024 2:51 PM EDT Narrative [facility] - 11/11/2024 7:53 PM EDT Antibodies not detected, but cannot rule out early infection. If clinically indicated repeat testing in 2-3 weeks. Robert Watters MD LAB BLOOD ORDERABLES Final Result [facility] [address] [place] [address], [place] [phone] * (ABNORMAL) RAMOS IFA with titer and pattern (11/11/2024 2:47 PM EDT) Antinuclear Antibody Positive (A) Negative 11/15/2024 11:16 AM EDT [facility] Comment:RAMOS performed by ind irect immunofluorescence (IFA) using HEp-2 substrate. RAMOS Titer 1:320(A) <1:80 Titer 11/15/2024 11:16 AM EDT [facility] RAMOS Pattern Homogene ous(A) 11/15/2024 11:16 AM EDT [facility] Comment: Test performed at [facility], [address], [place] [address] Thuy Jj MD, PhD - Optical Glass Wet Inspector Blood Venous blood specimen / Unknown Venipuncture / Unknown 11/11/2024 2:47 PM EDT 11/11/2024 2:51 PM EDT Robert Watters MD LAB BLOOD ORDERABLES Final Result [facility] [address] [place] [address] * (ABNORMAL) Vitamin D 25 hydroxy (11/11/2024 2:47 PM EDT) Vit D, 25-Hydroxy <10.0(L) 30.0 - 100.0 ng/mL LAB CHEMISTRY METHOD 11/11/2024 4:55 PM EDT [facility] Blood Venous blood specimen / Unknown Venipuncture / Unknown 11/11/2024 2:47 PM EDT 11/11/2024 2:51 PM EDT Narrative [facility] - 11/11/2024 4:55 PM EDT Vitamin D Reference Range ng/ml Deficiency <10 Insufficiency 10-30 Sufficiency 30-100 Toxicity >100 us Robert Watters MD LAB BLOOD ORDERABLES Final Result Performing Organization Address [facility]/ZIP Co de Phone Number [facility] [address] [place] [phone], * Rheumatoid factor (11/11/2024 2:47 PM EDT) Rheumatoid Factor <10.0 <=15.0 I Unit/mL LAB CHEMISTRY METHOD 11/11/2024 4:29 PM EDT [facility] Blood Venous blood specimen / Unknown Venipuncture / Unknown 11/11/2024 2:47 PM EDT 11/11/2024 2:51 PM EDT us Robert Watters MD LAB BLOOD ORDERABLES Final Result Performing Organization Address City/[facility]/ZIP Co de Phone Number [facility] [address] [place] [phone], * Thyroid stimulating hormone (11/11/2024 2:47 PM EDT) TSH 0.72 0.45 - 5.33 mcIU/mL LAB CHEMISTRY METHOD 11/11/2024 4:55 PM EDT [facility] Blood Venous blood specimen / Unknown Venipuncture / Unknown 11/11/2024 2:47 PM EDT 11/11/2024 2:51 PM EDT us Robert Watters MD LAB BLOOD ORDERABLES Final Result [facility] [address] [place] [address], * Vitamin B12 (11/11/2024 2:47 PM EDT) Vitamin B-12 195 180 - 914 pcg/mL LAB CHEMISTRY METHOD 11/11/2024 4:55 PM EDT [facility] Blood Venous blood specimen / Unknown Venipuncture / Unknown 11/11/2024 2:47 PM EDT 11/11/2024 2:51 PM EDT us Robert Watters MD LAB BLOOD ORDERABLES Final Result [facility] [address] [place] [address], [place] [phone] from Last [address] [place] [address] [place] [address] [employer] Care Teams Solar Field Installation Crew Member Relationship Specialty Start Date End Date Leanna Burt FNP [address] [place] [phone] PCP - General Family Medicine 11/11/24
--- OUTSIDE RECORDS SUMMARY | 2025-02-01 17:22 | XMS_ITS | Encounter Summary ---
Author Organization [facility] Address [address] [place] [phone] Phone Care Team Providers Care Laborer Electroplating Name Role Phone Pcp, Unknown Primary Care Provider Unavailabl e Pcp, Unknown Primary Care Provider Unavailabl e Reason for Visit * Reason Onset Date Comments Referral 11/08/2024 Call Back & Loca te Referral in SFA Needed Encounter Details Date Type Department Care Team (Late st Contact Info) Description 11/08/2024 Telephone [facility] [address] [place] [address] [place] [address] Unknown, Unknown, MD Referral (Call Back & Locate Referral in SFA Needed ) Social History Tobacco Use Types Packs/Day Years Used Date Smoking Tobacco: Never Assessed Comments Unknown Sex and Gender Information Value Date Recorded Sex Assigned at Not on file Legal Sex Female 9:57 AM EDT Gender Identity Not on file Sexual Orientation Not on file documented as of this encounter Progress Notes * Darryn Guerrero - 11/08/2024 10:29 AM EDT [facility] PEN Top Smart Phrases: Locating Referral Fax Hello, We are notifying you that the patient called to schedule a new patient appointment. The referral is not listed on file or in the media tab. The patient has informed us that the referral was faxed out. Please review the SFA and contact the patient with the referral determination if it is on file or not. Thank you If caller not the patient: Name: Relationship: Referral Order Details provided by caller Diagnosis: N/A Reason/Specify: N/A Referred To Name:N/A Referral Fax Out Dates: 11/05 Additional information: N/a Agent Action: > Route Encounter to FD Pool > Reason for Call: Referral > Comment: Call Back & Locate Referral in SFA Needed > Reiterate Scripting: Provide our referral not on file scripting Required Scripting: If the referral is not on file: Gabino, thank you for calling. I see that you'vementioned your provider faxed over a referral, but we have not yet received it on our end. Sometimes there can be a delay in processing or receiving faxes. Can you please confirm the date it was sent and the fax number that was used? Provide the caller with the office fax number. I will be happy to send a message over to the office for them to review their records and let you know if they've received it. documented in this encounter Plan of Treatment Upcoming Encounters Date Type Department Care Team (Late st Contact Info) Description 04/28/2025 2:40 PM EST Office Visit [facility] [address] [place] [address] Ramesh Spivey DO [address] [place] [address] [email or web address] documented as of this encounter Visit Diagnoses Not on filedocumented in this encounter Care Teams Laborer Electroplating Relationship Specialty Start Date End Date Pcp, Unknown PCP - General 11/08/24 12/22/24 Pcp, Unknown PCP - General 12/23/24 documented as of this encounter Additional Source Comments The information contained in this document represents components of the legal health record. It is not the complete legal health record.[facility]
--- OUTSIDE RECORDS SUMMARY | 2025-02-01 17:22 | XMS_ITS | Clinical Summary ---
Author Organization [facility] Address [address] [place] [address] [place] [address] Phone Care Team Providers Care Product Mgmt Dev Manager Name Role Phone Pcp, Unknown Primary Care Provider Unavailabl e Encounters Date Type Department Care Team Description 12/10/2024 Transcribe Orders [facility] [address] [place] [address] Leanna Burt NP Pituitary adenoma (Primary Dx) 11/08/2024 Telephone [facility] Endocrinology [address] [place] [address] Unknown, Unknown, MD Referral (Call Back & Locate Referral in SFA Needed ) from Last 3 Months Social History Tobacco Use Types Packs/Day Years Used Date Smoking Tobacco: Never Assessed Education Answer Date Recorded Are you interested in more education? Not on dominique e 12/24/2024 Are you concerned about learning? Not on file 12/24/2024 No 12/24/2024 No 12/24/2024 Digital Access Answer Date Recorded No 12/24/2024 No 12/24/2024 Reliable internet access at home? Not on file 12/24/2024 Device with a working camera? Not on file Comments Unknown Sex and Gender Information Value Date Recorded Sex Assigned at Not on file Legal Sex Female 9:57 AM EDT Gender Identity Not on file Sexual Orientation Not on file Plan of Treatment Upcoming Encounters Date Type Department Care Team (Late st Contact Info) Description 04/28/2025 2:40 PM EST Office Visit [facility] [address] [place] [address] Ramesh Spivey DO [address] [place] [address] Health Maintenance Due Date Last Done Comments MMR VACCINES (1 of 1 - Stand elsa series) 2006 BMI ASSESSMENT 2008 DEVELOPMENTAL/BEHAVIORAL SCR EENING (PHQ, PSC, or SWYC) 2008 COMBINED DTaP,Tdap,Td (1 - Tdap) 2012 DEPRESSION SCREENING 2017 SMOKING Hx and SMOKELESS TOB ACCO SCREENING 2018 VARICELLA VACCINES (1 of 2 - 13+ 2-dose series) 2018 HPV VACCINES (1 - 3-dose series) 2020 CHLAMYDIA SCREENING 2021 MENINGOCOCCAL VACCINES (B) ( 1 of 2 - Standard) 2021 ADOLESCENT UNIVERSAL LIPID SCREENING 2022 HEPATITIS C SCREENING 2023 HIV ONE-TIME SCREENING (18-6 5 YEARS) 2023 HEPATITIS B VACCINES (1 of 3 - 19+ 3-dose series) 2024 INFLUENZA VACCINE (#1) 2024 COVID-19 VACCINE (1 - 2024-2 6 season) 2024 HEPATITIS A VACCINES Aged Out No long er eligible based on patient's age to complete this topic HIB VACCINES Aged Out No longer eligi ble based on patient's age to complete this topic MENINGOCOCCAL VACCINES (ACWY) Aged Out No longer eligible based on patient's age to complete this topic PNEUMOCOCCAL VACCINES (0-49 years) Aged Out No longer eligible based on patient's age to complete this topic Medical Devices Not on file Insurance [facility] NON NSPG PCP [employer]ACHELLE [employer] NON NSPG PCP [employer] [facility] NON NSPG PCP [employer] [facility] NON NSPG PCP S[employer] NON NSPG PCP [employer] NON NSPG PCP [employer] Care Teams Product Mgmt Dev Manager Relationship Specialty Start Date End Date Pcp, Unknown PCP - General 12/23/24 Additional Source Comments The information contained in this document represents components of the legal health record. It is not the complete legal health record.[facility]
== END 2025-02-01 15:19 | disposition home or self-care (01) ==
LOC: HO.ENCR 14:30
PROVIDERS: PCP Registered Nurse; Visit Provider Student in an Organized Health Care Education/Training Program
DX: D35.2 Benign neoplasm of pituitary gland (principal)
CPT/HCPCS: 99204

== ENCOUNTER → 2025-02-01 14:29 | Outpatient (BNVA) | payer OTHER, SELFPAY | PROVIDERS: PCP Registered Nurse; Visit Provider Student in an Organized Health Care Education/Training Program | DX: D35.2 Benign neoplasm of pituitary gland (principal) | CPT/HCPCS: 99202 ==

== ENCOUNTER 2025-02-03 08:17 | Outpatient (REF) | payer OTHER, SELFPAY ==
--- OUTSIDE RECORDS SUMMARY | 2025-02-03 08:27 | XMS_ITS | Clinical Summary ---
Author Organization [address] Address [address] [place] [address] Phone Care Team Providers Care Data Warehousing Engineer Name Role Phone Leanna Burt [facility] Primary Care Provider Allergies No known active allergies Medications meclizine [...] - 01/20/2025 11:59 PM EDT Hospital Encounter [facility] Outpatient Rehabilititation [facility] [address] [place] [phone] MS (multiple sclerosis) (Primary Dx) Discharge Disposition: Home or Self Care 12/09/2024 Telephone [facility] Outpatient Rehabilititation [facility] [address] [place] [address] Carl Hammer MD 12/08/2024 3:05 PM EDT Lab Draw Station - 175 [facility] 175 [facility] [address] [place] [phone] Multiple sclerosis ([facility] V24, [facility] V28) 12/08/2024 2:00 PM EDT Office Visit [facility] 175 [facility] [address] [place] [phone] Carl Hammer MD Multiple sclerosis ([facility] [place] V24, [facility] [place] [place] V28) (Primary Dx) 12/08/2024 Telephone [facility] 175 [facility] [address] [place] [phone] Carl Hammer MD 11/11/2024 2:00 PM EDT Office Visit [address] [phone] Robert Watters MD Multiple sclerosis ([facility] V24, [facility] V28) (Primary Dx); Demyelinating changes in brain ([facility] [place] V24, [facility] [place] [place] V28); Abnormal tandem gait test; Hyporeflexia; Vitamin [...] History Growth Chart Information Age Height Weight Xakjgd-ave-pljq th Percentile BMI Percentile Head Circum Head Circum Percentile Date 19 years 162.6 cm (5' 4 ) 98 kg (216 lb) 97.66%* 2024 19 years 162.6 cm (5' 4 ) 88.5 kg (195 lb) 96.04%* 2024 * [facility] (Girls, 2-20 Years) Last Filed Vital Signs [...] Info) Description 02/08/2025 8:00 AM EDT Appointment [facility] [place] Outpatient Rehabilititation - [address] [phone] 03/15/2025 3:30 PM EST Office Visit [facility] - [address] [phone] Carl Hammer MD [address] [place] [id number] Health Maintenance Due Date Last Done Comments [...] Routine 12/08/2024 3:06 PM EDT Multiple sclerosis ([facility]/HCC V24, CMS/HCC V28) JCV POLYOMA VIRUS ANTIBODY WITH REFLEX TO INHIBITION ASSAY Routine 11/11/2024 2:47 PM EDT Demyelinating changes in brain ([facility]/HCC V24, CMS/HCC V28) Abnormal tandem gait test Hyporeflexia Vitamin D insufficiency Vitamin B12 deficiency Encounter for screening for human immunodeficiency virus (HIV) Routine screening for STI (sexually transmitted infection) Risk of exposure to Lyme disease Multiple sclerosis ([facility] V24, [facility] V28) EXTRACTABLE NUCLEAR ANTIBODIES PROFILE Routine 11/11/2024 2:47 PM EDT Demyelinating changes in brain ([facility] V24, CMS/HCC V28) Abnormal tandem gait test Hyporeflexia Vitamin D insufficiency Vitamin B12 deficiency Encounter for screening for human immunodeficiency virus (HIV) Routine screening for STI (sexually transmitted infection) Risk of exposure to Lyme disease Multiple sclerosis ([facility] V24, [facility] V28) RAMOS IFA WITH TITER AND PATTERN Routine 11/11/2024 2:47 PM EDT Demyelinating changes in brain (CMS/HCC V24, CMS/HCC V28) Abnormal tandem gait test Hyporeflexia Vitamin D insufficiency Vitamin B12 deficiency Encounter for screening for human immunodeficiency virus (HIV) Routine screening for STI (sexually transmitted infection) Risk of exposure to Lyme disease Multiple sclerosis ([facility] V24, [facility] V28) THYROID STIMULATING HORMONE Routine 11/11/2024 2:47 PM EDT Demyelinating changes in brain (CMS/HCC V24, CMS/HCC V28) Abnormal tandem gait test Hyporeflexia Vitamin D insufficiency Vitamin B12 deficiency Encounter for screening for human immunodeficiency virus (HIV) Routine screening for STI (sexually transmitted infection) Risk of exposure to Lyme disease Multiple sclerosis ([facility] V24, CMS/HCC V28) VITAMIN D 25 HYDROXY Routine 11/11/2024 2:47 PM EDT Demyelinating changes in brain (CMS/HCC V24, [facility] V28) Abnormal tandem gait test Hyporeflexia Vitamin D insufficiency Vitamin B12 deficiency Encounter for screening for human immunodeficiency virus (HIV) Routine screening for STI (sexually transmitted infection) Risk of exposure to Lyme disease Multiple sclerosis ([facility] V24, [facility]/HCC V28) BORRELIA BURGDORFERI ANTIBODIES, IGG AND IGM WITH REFLEX TO IMMUNOBLOT Routine 11/11/2024 2:47 PM EDT Demyelinating changes in brain ([facility] V24, [facility] V28) Abnormal tandem gait test Hyporeflexia Vitamin D insufficiency Vitamin B12 deficiency Encounter for screening for human immunodeficiency virus (HIV) Routine screening for STI (sexually transmitted infection) Risk of exposure to Lyme disease Multiple sclerosis ([facility] V24, [facility] V28) RHEUMATOID FACTOR Routine 11/11/2024 2:4 7 PM EDT Demyelinating changes in brain ([facility] V24, [facility] V28) Abnormal tandem gait test Hyporeflexia Vitamin D insufficiency Vitamin B12 deficiency Encounter for screening for human immunodeficiency virus (HIV) Routine screening for STI (sexually transmitted infection) Risk of exposure to Lyme disease Multiple sclerosis ([facility] V24, [facility] V28) VITAMIN B12 Routine 11/11/2024 2:47 PM EDT Demyelinating changes in brain ([facility] V24, [facility] V28) Abnormal tandem gait test Hyporeflexia Vitamin D insufficiency Vitamin B12 deficiency Encounter for screening for human immunodeficiency virus (HIV) Routine screening for STI (sexually transmitted infection) Risk of exposure to Lyme disease Multiple sclerosis ([facility] V24, [facility] V28) HIV 1, 2 ANTIBODY, P24 ANTIGEN WITH REFLEX TO DIFFERENTIATION Routine 11/11/2024 2:47 PM EDT Demyelinating changes in brain ([facility] V24, [facility] V28) Abnormal tandem gait test Hyporeflexia Vitamin D insufficiency Vitamin B12 deficiency Encounter for screening for human immunodeficiency virus (HIV) Routine screening for STI (sexually transmitted infection) Risk of exposure to Lyme disease Multiple sclerosis ([facility] V24, [facility] V28) RAPID PLASMA REAGIN WITH REFLEX TO TITER AND TREPONEMA PALLIDUM ANTIBODY Routine 11/11/2024 2:47 PM EDT Demyelinating changes in brain ([facility] V24, [facility] [place] [place] V28) Abnormal tandem gait test Hyporeflexia Vitamin D insufficiency Vitamin B12 deficiency Encounter for screening for human immunodeficiency virus (HIV) Routine screening for STI (sexually transmitted infection) Risk of exposure to Lyme disease Multiple sclerosis ([facility] V24, [facility] [place] [place] V28) from Last 3 Months Results * (ABNORMAL) CBC auto differential (01/20/2025 8:24 AM EDT) Only the most recent of2 resultswithin the time period is included. [facility] WBC 8.7 4.8 - 10.8 K/mcL LAB HEMETOLOGY METHOD 01/20/2025 10:02 AM [facility] RBC 4.60 3.80 - 4.80 M/mcL LAB HEMETOLOGY METHOD 01/20/2025 10:02 AM [facility] Hemoglobin 13.9 11.5 - 16.0 g/dL LAB HEMETOLOGY METHOD 01/20/2025 10:02 AM [facility] Hematocrit 42.1 35.0 - 47.0 % LAB HEMETOLOGY METHOD 01/20/2025 10:02 AM [facility] MCV 91.7 79.0 - 98.0 FL LAB HEMETOLOGY METHOD 01/20/2025 10:02 AM [facility] MCH 30.3 27.0 - 32.0 pcg LAB HEMETOLOGY METHOD 01/20/2025 10:02 AM [facility] MCHC 33.0 32.0 - 37.0 g/dL LAB HEMETOLOGY METHOD 01/20/2025 10:02 AM [facility] RDW 13.5 11.0 - 15.0 % LAB HEMETOLOGY METHOD 01/20/2025 10:02 AM [facility] Platelets 268 130 - 400 K/mcL LAB HEMETOLOGY METHOD 01/20/2025 10:02 AM [facility] MPV 11.2(H) 7.0 - 11.0 FL LAB HEMETOLOGY METHOD 01/20/2025 10:02 AM [facility] NRBC 0.0 <1.0 % LAB HEMETOLOGY METHOD 01/20/2025 10:02 AM [facility] NRBC Absolute 0.00 <0.10 K/mcL LAB HEMETOLOGY METHOD 01/20/2025 10:02 AM [facility] Neutrophils Relative 67.6 % LAB HEMETOLOGY METHOD 01/20/2025 10:02 AM [facility] Lymphocytes Relative 24.1 % LAB HEMETOLOGY METHOD 01/20/2025 10:02 AM [facility] Monocytes Relative 6.7 % LAB HEMETOLOGY METHOD 01/20/2025 10:02 AM [facility] Eosinophils Relative 0.8 % LAB HEMETOLOGY METHOD 01/20/2025 10:02 AM [facility] Basophils Relative 0.3 % LAB HEMETOLOGY METHOD 01/20/2025 10:02 AM [facility] Immature Granulocytes Relative 0.5 % LAB HEMETOLOGY METHOD 01/20/2025 10:02 AM [facility] Neutrophils Absolute 5.88 1.50 - 7.00 K/mcL LAB HEMETOLOGY METHOD 01/20/2025 10:02 AM [facility] Lymphocytes Absolute 2.10 1.00 - 5.00 K/mcL LAB HEMETOLOGY METHOD 01/20/2025 10:02 AM [facility] Monocytes Absolute 0.58 0.20 - 1.00 K/mcL LAB HEMETOLOGY METHOD 01/20/2025 10:02 AM [facility] Eosinophils Absolute 0.07 0.00 - 0.50 K/mcL LAB HEMETOLOGY METHOD 01/20/2025 10:02 AM EDT [facility] Basophils Absolute 0.03 0.00 - 0.20 K/[facility] LAB HEMETOLOGY METHOD 01/20/2025 10:02 AM EDT [facility] Immature Granulocytes Absolute 0.04(H) 0.00 - 0.03 K/[facility] LAB HEMETOLOGY METHOD 01/20/2025 10:02 AM EDT [facility] Blood Venous blood specimen / Unknown Venipuncture / Unknown 01/20/2025 8:24 AM EDT 01/20/2025 8:24 AM EDT [facility] LAB BLOOD ORDERABLES Final R esult Performing Organization Address [facility] de Phone Number [facility] [address] [place] [address], * Creatinine (01/20/2025 8:24 AM EDT) Only the most recent of2 resultswithin the time period is included. Creatinine 0.61 0.50 - 1.10 mg/dL LAB CHEMISTRY METHOD 01/20/2025 10:54 AM EDT [facility] eGFR 132 >=60 mL/min/1. 73m2 LAB CHEMISTRY METHOD 01/20/2025 10:54 AM EDT [facility] Comment:Calculation based on the Chronic Kidney Disease Epidemiology Collaboration (CKD-EPI) equation refit without adjustment for race. Blood Venous blood specimen / Unknown Venipuncture / Unknown 01/20/2025 8:24 AM EDT 01/20/2025 8:24 AM EDT Nicole Pee [facility] LAB BLOOD ORDERABLES Final R esult Performing Organization Address [facility]/ZIP Co de Phone Number [facility] [address] [place] [address], * BUN (01/20/2025 8:24 AM EDT) Only the most recent of2 resultswithin the time period is included. [facility] BUN 11 5 - 25 mg/dL LAB CHEMISTRY METHOD 01/20/2025 10:54 AM T [facility] Blood Venous blood specimen / Unknown Venipuncture / Unknown 01/20/2025 8:24 AM EDT 01/20/2025 8:24 AM EDT Nicole GARCIA LAB BLOOD ORDERABLES Final R esult [facility] [address] [place] [address], * Hepatic function panel (01/20/2025 8:24 AM EDT) [facility] Total Protein 6.7 6.0 - 8.0 g/dL LAB CHEMISTRY METHOD 01/20/2025 10:56 AM [facility] Albumin 4.1 3.2 - 5.0 g/dL LAB CHEMISTRY METHOD 01/20/2025 10:56 AM [facility] Total Bilirubin 0.6 0.0 - 1.4 mg/dL LAB CHEMISTRY METHOD 01/20/2025 10:56 AM [facility] Bilirubin, Direct 0.1 0.0 - 0.3 mg/dL LAB CHEMISTRY METHOD 01/20/2025 10:56 AM [facility] Bilirubin, Indirect 0.5 0.0 - 1.1 mg/dL LAB CHEMISTRY METHOD 01/20/2025 10:56 AM [facility] ALT (SGPT) 21 10 - 60 unit/L LAB CHEMISTRY METHOD 01/20/2025 10:56 AM [facility] AST (SGOT) 17 10 - 42 unit/L LAB CHEMISTRY METHOD 01/20/2025 10:56 AM EDT [facility] Alkaline Phosphatase 82 42 - 121 unit/L LAB CHEMISTRY METHOD 01/20/2025 10:56 AM EDT [facility] Blood Venous blood specimen / Unknown Venipuncture / Unknown 01/20/2025 8:24 AM EDT 01/20/2025 8:24 AM EDT Nicole GARCIA LAB BLOOD ORDERABLES Final R esult Performing Organization Address [facility] de Phone Number [facility] [address] [place] [address], [place] [phone] * Hepatitis C antibody (12/08/2024 3:06 PM EDT) [facility] Hepatitis C Antibody Negative Negative LAB CHEMISTRY METHOD 12/08/2024 8:17 PM EDT [facility] Blood Venous blood specimen / Unknown Venipuncture / Unknown 12/08/2024 3:06 PM EDT 12/08/2024 3:06 PM EDT us Carl Hammer MD LAB BLOOD ORDERABLES Fin al Result Performing Organization Address [facility] de Phone Number [facility] [address] [place] [address], [place] [phone] * Interferon gamma interpretation (12/08/2024 3:06 PM EDT) [facility] Quantiferon Plus Interpretation Negative Negative LAB CHEMISTRY METHOD 12/10/2024 9:29 AM EDT [facility] Blood Venous blood specimen / Unknown Venipuncture / Unknown 12/08/2024 3:06 PM EDT 12/08/2024 3:06 PM EDT us Carl Hammer MD LAB BLOOD ORDERABLES Fin al Result Performing Organization Address City/[facility]/ZIP Co de Phone Number [facility] [address] [place] [address], [place] [phone] * Interferon gamma antigen 2 (12/08/2024 3:06 PM EDT) Blood Venous blood specimen / Unknown Venipuncture / Unknown 12/08/2024 3:06 PM EDT 12/08/2024 3:06 PM EDT us Carl Hammer MD LAB BLOOD ORDERABLES Fin al Result [facility] [address] [place] [address], [place] [phone] * Interferon gamma antigen 1 (12/08/2024 3:06 PM EDT) Blood Venous blood specimen / Unknown Venipuncture / Unknown 12/08/2024 3:06 PM EDT 12/08/2024 3:06 PM EDT Carl Hammer MD LAB BLOOD ORDERABLES Fin al Result [facility] [address] [place] [address], [place] [phone] * Interferon gamma mitogen (12/08/2024 3:06 PM EDT) Blood Venous blood specimen / Unknown Venipuncture / Unknown 12/08/2024 3:06 PM EDT 12/08/2024 3:06 PM EDT us Carl Hammer MD LAB BLOOD ORDERABLES Fin al Result [facility] [address] [place] [address], [place] [phone] * Interferon gamma NIL (12/08/2024 3:06 PM EDT) Blood Venous blood specimen / Unknown Venipuncture / Unknown 12/08/2024 3:06 PM EDT 12/08/2024 3:06 PM EDT us Carl Hammer MD LAB BLOOD ORDERABLES Fin al Result Performing Organization Address [facility]/ZIP Co de Phone Number [facility] [address] [place] [address], [place] [phone] * Hepatitis B surface antigen with reflex to confirmation (12/08/2024 3:06 PM EDT) Hepatitis B Surface Ag Negative Negative LAB CHEMISTRY METHOD 12/08/2024 8:20 PM EDT [facility] Blood Venous blood specimen / Unknown Venipuncture / Unknown 12/08/2024 3:06 PM EDT 12/08/2024 3:06 PM EDT Anali [facility] - 12/08/2024 8:20 PM EDT Over the counter supplements containing high doses of biotin may interfere with this assay. If interference is suspected, patients shoud be retested after refraining from biotin supplements for 72 hours. us Carl Hammer MD LAB BLOOD ORDERABLES Fin al Result Performing Organization Address [facility] Co de Phone Number [facility] [address] [place] [address], [place] [phone] * Hepatitis B core antibody IgM (12/08/2024 3:06 PM EDT) Pathologist [facility] Hep B Core IgM Negative Negative LAB CHEMISTRY METHOD 12/08/2024 8:17 PM EDT [facility] Blood Venous blood specimen / Unknown Venipuncture / Unknown 12/08/2024 3:06 PM EDT 12/08/2024 3:06 PM EDT Anali [facility] - 12/08/2024 8:17 PM EDT Over the counter supplements containing high doses of biotin may interfere with this assay. If interference is suspected, patients shoud be retested after refraining from biotin supplements for 72 hours. us Carl Hammer MD LAB BLOOD ORDERABLES Fin al Result Performing Organization Address [facility] de Phone Number [facility] [address] [place] [address], [place] [phone] * (ABNORMAL) Varicella zoster antibody IgG (12/08/2024 3:06 PM EDT) Pathologist [facility] Varicella IgG Negative( A) Positive LAB CHEMISTRY METHOD 12/09/2024 9:25 AM EDT [facility] Varicella Zoster IgG 0.56(L) >=1.00 S/CO LAB CHEMISTRY METHOD 12/09/2024 9:25 AM EDT [facility] Blood Venous blood specimen / Unknown Venipuncture / Unknown 12/08/2024 3:06 PM EDT 12/08/2024 3:06 PM EDT Narrative [facility] - 12/09/2024 9:25 AM EDT Interpretation >= 1.00 S/CO is considered to be consistent with Immunity us Carl Hammer MD LAB BLOOD ORDERABLES Fin al Result Performing Organization Address [facility] de Phone Number [facility] [address] [place] [address], [place] [phone] * Immunoglobulin IgA (12/08/2024 3:06 PM EDT) Pathologist [facility] IgA 135 61 - 348 mg/dL LAB CHEMISTRY METHOD 12/08/2024 7:11 PM EDT [facility] Blood Venous blood specimen / Unknown Venipuncture / Unknown 12/08/2024 3:06 PM EDT 12/08/2024 3:06 PM EDT us Carl Hammer MD LAB BLOOD ORDERABLES Fin al Result Performing Organization Address City/[facility] de Phone Number [facility] [address] [place] [address], [place] [phone] * Immunoglobulin IgM (12/08/2024 3:06 PM EDT) Pathologist [facility] IgM 63 23 - 259 mg/dL LAB CHEMISTRY METHOD 12/08/2024 7:11 PM EDT [facility] Blood Venous blood specimen / Unknown Venipuncture / Unknown 12/08/2024 3:06 PM EDT 12/08/2024 3:06 PM EDT us Carl Hammer MD LAB BLOOD ORDERABLES Fin al Result [facility] [address] [place] [address], [place] [phone] * Immunoglobulin IgG (12/08/2024 3:06 PM EDT) [facility] Total IgG 667 549 - 1,584 mg/dL LAB CHEMISTRY METHOD 12/08/2024 7:11 PM EDT [facility] Blood Venous blood specimen / Unknown Venipuncture / Unknown 12/08/2024 3:06 PM EDT 12/08/2024 3:06 PM EDT us Carl Hammer MD LAB BLOOD ORDERABLES Fin al Result [facility] [address] [place] [address], [place] [phone] * HIV 1,2 antibody, p24 antigen with reflex to differentiation (11/11/2024 2:47 PM EDT) [facility] HIV Combo AB/AG Negative Negative LAB CHEMISTRY METHOD 11/11/2024 10:08 PM EDT [facility] Blood Venous blood specimen / Unknown Venipuncture / Unknown 11/11/2024 2:47 PM EDT 11/11/2024 2:51 PM EDT Narrative [facility] - 11/11/2024 10:08 PM EDT Nonreactive result does not rule out HIV infection. Robert Watters MD LAB BLOOD ORDERABLES Final Result Performing Organization Address City/[facility]/ZIP Co de Phone Number [facility] [address] [place] [address], [place] [phone] * Rapid plasma reagin with reflex to titer and treponema pallidum antibody (11/11/2024 2:47 PM EDT) Pathologist [facility] RPR Nonreactive Nonreactive 11/11/2024 8:28 PM EDT [facility] Blood Venous blood specimen / Unknown Venipuncture / Unknown 11/11/2024 2:47 PM EDT 11/11/2024 2:51 PM EDT Robert Watters MD LAB BLOOD ORDERABLES Final Result Performing Organization Address [facility]/ZIP Co de Phone Number [facility] [address] [place] [address], [place] [phone] * (ABNORMAL) JCV polyoma virus antibody with reflex to inhibition assay (11/11/2024 2:47 PM EDT) Index Value 2.80(H) 11/17/2024 10:56 PM EDT [facility] [employer] JCV Antibody POSITIVE( A) 11/17/2024 10:56 PM EDT [facility] [employer] Comment: Index interpretive criteria: <0.20 negative 0.20-0.40 [...] (1) TYSABRI(natalizumab)US Prescribing Information Test performed by [facility] [address] [place] [address] Critical Care Registered Nurse: Pepper Ovalle MD,PHD,JASMIN Test Rep[facility] by [facility], [facility], [address] [place] [address] Sin Thomas M.D., Ph.D., Director of Laboratories , [facility] [id number] Blood Venous blood specimen / Unknown Venipuncture / Unknown 11/11/2024 2:47 PM EDT 11/11/2024 2:51 PM EDT Narrative [facility] - 11/17/2024 10:56 PM EDT Performing Organization Information: Site ID: [id number] Name: [facility] Address: [address] [place] [address] Director: Sin Thomas MD PhD Robert Watters MD LAB BLOOD ORDERABLES Final Result [facility] [address] [phone] * Extractable Nuclear Antibodies Profile (11/11/2024 2:47 PM EDT) RECOVERY AGENT Antibody 0.6 <5.0 U/mL 11/16/2024 7:14 AM EDT [facility] Comment:INTERPRETATION: Nega tive Sm (Alvarez) Antibody <0.7 <7.0 U/mL 11/16/2024 7:14 AM EDT [facility] Comment:INTERPRETATION: Nega tive SS-A Antibody <0.4 <7.0 U/mL 11/16/2024 7:14 AM EDT [facility] Comment:INTERPRETATION: Nega tive SS-B Antibody <0.4 <7.0 U/mL 11/16/2024 7:14 AM EDT [facility] Comment:INTERPRETATION: Nega tive Scleroderma (SCL-70) Antibody <0.6 <7.0 U/mL 11/16/2024 7:14 AM EDT [facility] Comment:INTERPRETATION: Nega tive SHAWN-1 IgG Antibody <0.3 <7.0 U/mL 11/16/2024 7:14 AM EDT [facility] Comment: INTERPRETATION: Negative Test performed at [facility] [facility], [address], [place] [address] Thuy Jj MD, PhD - Critical Care Registered Nurse Blood Venous blood specimen / Unknown Venipuncture / Unknown 11/11/2024 2:47 PM EDT 11/11/2024 2:51 PM EDT Robert Watters MD LAB BLOOD ORDERABLES Final Result [facility] [address] [place] [address] * Borrelia burgdorferi antibodies, IGG and IGM with reflex to immunoblot (11/11/2024 2:47 PM EDT) [facility] Lyme IgG Antibody Negative Negative LAB MICROBIOLOGY METHOD 11/11/2024 7:53 PM EDT [facility] Lyme IgM Antibody Negative Negative LAB MICROBIOLOGY METHOD 11/11/2024 7:53 PM EDT [facility] Blood Venous blood specimen / Unknown Venipuncture / Unknown 11/11/2024 2:47 PM EDT 11/11/2024 2:51 PM EDT Narrative [facility] - 11/11/2024 7:53 PM EDT Antibodies not detected, but cannot rule out early infection. If clinically indicated repeat testing in 2-3 weeks. Robert Watters MD LAB BLOOD ORDERABLES Final Result [facility] [address] [place] [address], [place] [phone] * (ABNORMAL) RAMOS IFA with titer and pattern (11/11/2024 2:47 PM EDT) Antinuclear Antibody Positive (A) Negative 11/15/2024 11:16 AM EDT [facility] Comment:RAMOS performed by ind irect immunofluorescence (IFA) using HEp-2 substrate. RAMOS Titer 1:320(A) <1:80 Titer 11/15/2024 11:16 AM EDT [facility] RAMOS Pattern Homogene ous(A) 11/15/2024 11:16 AM EDT [facility] Comment: Test performed at [facility], [address], [place] [address] Thuy Jj MD, PhD - Critical Care Registered Nurse Blood Venous blood specimen / Unknown Venipuncture / Unknown 11/11/2024 2:47 PM EDT 11/11/2024 2:51 PM EDT Robert Watters MD LAB BLOOD ORDERABLES Final Result [facility] [address] [place] [address] * (ABNORMAL) Vitamin D 25 hydroxy (11/11/2024 2:47 PM EDT) Vit D, 25-Hydroxy <10.0(L) 30.0 - 100.0 ng/mL LAB CHEMISTRY METHOD 11/11/2024 4:55 PM EDT [facility] Blood Venous blood specimen / Unknown Venipuncture / Unknown 11/11/2024 2:47 PM EDT 11/11/2024 2:51 PM EDT Narrative [facility] - 11/11/2024 4:55 PM EDT Vitamin D Reference Range ng/ml Deficiency <10 Insufficiency 10-30 Sufficiency 30-100 Toxicity >100 us Robert Watters MD LAB BLOOD ORDERABLES Final Result Performing Organization Address [facility]/ZIP Co de Phone Number [facility] [address] [place] [address], * Rheumatoid factor (11/11/2024 2:47 PM EDT) Rheumatoid Factor <10.0 <=15.0 I Unit/mL LAB CHEMISTRY METHOD 11/11/2024 4:29 PM EDT [facility] Blood Venous blood specimen / Unknown Venipuncture / Unknown 11/11/2024 2:47 PM EDT 11/11/2024 2:51 PM EDT us Robert Watters MD LAB BLOOD ORDERABLES Final Result Performing Organization Address City/[facility]/ZIP Co de Phone Number [facility] [address] [place] [address], * Thyroid stimulating hormone (11/11/2024 2:47 PM EDT) TSH 0.72 0.45 - 5.33 mcIU/mL LAB CHEMISTRY METHOD 11/11/2024 4:55 PM EDT [facility] Blood Venous blood specimen / Unknown Venipuncture / Unknown 11/11/2024 2:47 PM EDT 11/11/2024 2:51 PM EDT us Robert Watters MD LAB BLOOD ORDERABLES Final Result [facility] [address] [place] [address], * Vitamin B12 (11/11/2024 2:47 PM EDT) Vitamin B-12 195 180 - 914 pcg/mL LAB CHEMISTRY METHOD 11/11/2024 4:55 PM EDT [facility] Blood Venous blood specimen / Unknown Venipuncture / Unknown 11/11/2024 2:47 PM EDT 11/11/2024 2:51 PM EDT us Robert Watters MD LAB BLOOD ORDERABLES Final Result [facility] [address] [place] [address], [place] [phone] from Last [address] [place] [address] [place] [address] [employer] Care Teams Data Warehousing Engineer Relationship Specialty Start Date End Date Leanna Burt FNP [address] [place] [address] PCP - General Family Medicine 11/11/24
--- OUTSIDE RECORDS SUMMARY | 2025-02-03 08:27 | XMS_ITS | Clinical Summary ---
Author Organization [facility] Address [address] [place] [address] Care Team Providers Care Archival Studies Professor Name Role Phone Leanna Burt Primary Care Provider [phone] Source Comments PLEASE NOTE, if this patient is a minor, it may be UNLAWFUL to discuss sensitive information that is contained in these records (such as FAMILY PLANNING, MENTAL HEALTH or SUBSTANCE ABUSE) with the minor patient's parent or other person without the patient's specific authorization.[facility] Allergies No known active allergies Medications medroxyPROGESTERon e (DEPO-PROVERA) 150 mg/mL injectionIndicatio ns:Encounter for counseling regarding contraception Inject 1 mL into the muscle every 3 (three) months 1 mL 3 06/23/19 25 Active meclizine (ANTIVERT) 12.5 mg tabletIndications: Dizziness Take 1 Tablet by mouth once daily as needed (dizzinness ). 90 Tablet 11/06/19 25 Active ondansetron ODT (ZOFRAN-ODT) 4 mg disintegrating tabletIndications: Dizziness DISSOLVE 1 TABLET BY MOUTH EVERY 6 HOURS NEEDED FOR NAUSEA.*INS LIMITS 9 TABS/30 DAYS* 90 Tablet 02/04/20 25 Active ondansetron ODT (ZOFRAN-ODT) 4 mg disintegrating tabletIndications: Dizziness Take 1 Tablet by mouth every 6 (six) hours as needed for nausea. 90 Tablet 11/06/19 25 025 Discontinued Hospital, Clinic, or Other Facility Administered Medication Ordered Dose Route Frequency Start Date End Date Status Depo-Provera 150 mg/mL injection (medroxyPROGESTERone)I ndications:Depo-Computer Systems Consultant a contraceptive status 150 mg IM Every 3 months 03/04/2022 Active Depo-Provera 150 mg/mL injection (medroxyPROGESTERone)I ndications:Encounter for surveillance of injectable contraceptive 150 mg IM Every 3 months 05/20/2022 Active medroxyPROGESTERone (Depo-Provera) injection syringe 150 mgIndications:Depo-Pro vera contraceptive status 150 mg IM Every 3 Months 09/28/2024 08/30/2025 Active Active Problems Problem Noted Date Diagnosed Date Gastroesophageal reflux disease without esophagi tis 01/27/2024 Current episode of major dep ressive disorder without prior episode 06/09/2020 Injury, self-inflicted 06/09/2020 Acne vulgaris 01/13/2019 Vasovagal syncope 09/24/2017 Overview (10/13/2017): Patient seen at [facility] [place] [facility] on 09/18/17, diagnosed with Neurogenic or Vasovagal syncope. Follow up in 3 months. Acanthosis nigricans 09/21/2017 BMI (body mass index), pediatric, greater than 9 9% for age 0609/21/2017 Mild intermittent asthma 09/21/2017 Allergic rhinitis 09/21/2017 Encounters Date Type Department Care Team Description 12/28/2024 2:20 PM EDT Office Visit [address] [phone] Richa Figueroa RN Hernandez, Maria C 11/05/2024 4:20 PM EDT Office Visit [address] [address] Leanna Burt, Leonor Ricardo from Last 3 Months Immunizations Immunization Administration Dates Next Due DTAP (DAPTACEL),5 PERTUSSIS ANTIGENS 08/2009,07/11/2006,2005,08/12,2005 Flu, Preservative Free 01/31/2022,2020,01/13/2019,04/08 HEP B, PED/ADOL (KZOWTAR-A-VBQM/RECOMBIVAX-PEDS) 2005,2005,2005 HPV 9 (Gardasil) 10/12/2019,01/13/2019 Hep A, Ped/adol, 2 Dose 10/12/2019,01/13/2019 Hib (PRP-T) 2005,2005 IPV (IPOL) 04/25/2009, 6,2005,06/13 MENINGOCOCCAL B (Bexsero), OMV 10/10/2022,2021 MENINGOCOCCAL MCV4P (MENACTRA) 01/13/2019 MMR (MMR II/Priorix) 04/25/2009,05/01/2006 Meningococcal Conjugate Quad rivalent (MenQuadfi), MenACWY-TT (MCV4) 01/31/2022 TDAP 01/22/2018 Varicella (Varivax), Live Vaccine 04/25/2009,02/2007 Family History Medical History Relation Name Comments Hypertension Maternal Grandmother Migraines Mother Other (See Comments) Mother Gastrit is Hypertension Paternal Grandfather Hypertension Paternal Grandmother Relation Name Status Comments Maternal Grandmother Mother Paternal Grandfather Paternal Grandmother Social History Tobacco Use Types Packs/Day Years Used Date Smoking Tobacco: Never Passive Smoke Exposure: Never Smokeless Tobacco: Never Tobacco Cessation:Counseling Given: Not Answered Alcohol Use Standard Drinks/Week Comments No 0 (1 standard drink = 0.6 oz pur e alcohol) Social Connections Answer Date Recorded Connectedness 0 01/13/2019 Financial Resource Strain Answer Date R ecorded Financial Resource Strain 0 2018 Stress Answer Date Recorded Stress 0 01/13/2019 Physical Activity Answer Date Recorded Physical Activity 0 01/13/2019 Food Insecurity Answer Date Recorded Food 0 01/13/2019 Transportation Needs Answer Date Record ed Transportation 0 01/13/2019 Housing Stability Answer Date Recorded Housing 0 01/13/2019 Safety and Environment Answer Date Cory rded How often does anyone, inclu ding family and friends, physically hurt you? 1 01/27/2024 Utilities Answer Date Recorded Utilities 0 01/13/2019 Employment Answer Date Recorded Stress 0 01/13/2019 Comments No Sex and Gender Information Value Date Recorded Sex Assigned at Female 01/13/2019 6:08 AM PDT Legal Sex Female 9:31 AM PDT Gender Identity Female 01/13/2019 6:08 AM PDT Sexual Orientation Straight 01/13/2019 6: 08 AM PDT Last Filed Vital Signs Vital Sign Reading Time Taken Comments Blood Pressure 118/84 11/05/2024 4:11 PM EDT Pulse 107 11/05/2024 4:11 PM EDT Temperature 36.9 C (98.5 F) 11/05/2024 4:11 PM EDT Respiratory Rate 18 11/05/2024 4:11 PM EDT Oxygen Saturation 98% 10/12/2019 11:33 AM EDT Inhaled Oxygen Concentration - - Weight 88.5 kg (195 lb) 11/05/2024 4:11 PM EDT Height 162.6 cm (5' 4 ) 11/05/2024 4:11 PM EDT Body Mass Index 33.47 11/05/2024 4:11 PM EDT Plan of Treatment Health Maintenance Due Date Last Done Comments Hepatitis C Screening 2005 Chlamydia Screening 10/11/2023 10/10/2022, Gonorrhea Screening 10/11/2023 10/10/2022, 1 Imm-Pneumococcal (1 of 2 - PCV) 2024 Iju-PLSLL-36 ( - season) 2024 Imm-Influenza (#1) 2024 01/31/2022, 0 06/09/2020, 01/13/2019, Additional history exists Relationship Safety Screening/Counseling 01/26/2025 01/27/2024, 06/09/2020, 01/13/2019 Depression Monitoring 02/05/2025 11/05/2024 , 10/20/2024, 01/27/2024, Additional history exists PESA-Mmvv-cybnqoi INJ 03/22/2025 12/28/2024 Annual Wellness (Adult): Ind icated (All Coverage) 11/05/2025 11/05/2024 Anxiety Screening 11/05/2025 11/05/2024 Hypertension Screening (#1) 11/05/2025 Tobacco Screening 11/05/2025 11/05/2024 Diabetes Screening 06/25/2027 06/24/2024, 0 10/10/2022, 10/10/2022, Additional history exists Imm-DTaP/Tdap/Td (7 - Td or Tdap) 01/23/2028 01/22/2018, 04/25/2009, 07/11/2006, Additional history exists Imm-Hepatitis B Completed 2005, 05/23, 2005 Imm-IPV (Polio) Completed 04/25/2009, 09/20, 2005, Additional history exists Imm-MMR Completed 04/25/2009, 05/01/2006 Imm-Varicella Completed 04/25/2009, 05/01/2006 Imm-HPV Completed 10/12/2019, 01/13/2019 Imm-Hepatitis A Completed 10/12/2019, 01/13/2019 HIV Screening Completed 06/09/2020 Imm-Meningococcal B Completed 10/10/2022, Alcohol and Drug Screen Completed 11/06/19, 10/20/2024, 10/10/2022, Additional history exists Procedures Procedure Name Priority Date/Time Associated Diagnosis Comments MEDICATIONS SCANNED DOCUMENT 12/09/2024 3:00 AM EDT COMPREHENSIVE METABOLIC PANEL Routine 06/24/2024 2:24 PM EST Paresthesia C TRACHOMATIS/N GONORRHOEAE RNA,TMA Routine 10/10/2022 10:12 AM EDT Encounter for routine child health examination without abnormal findings ANTIBODY HIV-1&HIV-2 SINGLE RESULT Routine 06/09/2020 2:10 PM EST Sexually active at young age from Last 3 Months or Most Recently Relevant to Health Maintenance Results * MEDICATIONS SCANNED DOCUMENT (12/09/2024 3:00 AM EDT) 12/09/2024 3:00 AM EDT us Janusz Reid MD SCAN MEDS OTHER ORDERS Final Result * COMPREHENSIVE METABOLIC PANEL (06/24/2024 2:24 PM EST) GLUCOSE 77 65 - 99 mg/dL [facility] Comment: Fasting reference interval UREA NITROGEN (BUN) 16 7 - 20 mg/dL [facility] CREATININE (blood) 0.69 0.50 - 0.96 mg/dL [facility] EGFR 128 > OR = 60 mL/min/1. 73m2 [facility] BUN/CREATININE RATIO SEE NOTE: [facility] Comment: Not Reported: BUN and Creatinine are within reference range. SODIUM 138 135 - 146 mmol/L [facility] POTASSIUM 4.3 3.8 - 5.1 mmol/L [facility] CHLORIDE 105 98 - 110 mmol/L [facility] CARBON DIOXIDE 25 20 - 32 mmol/L [facility] CALCIUM 9.8 8.9 - 10.4 mg/dL [facility] PROTEIN, TOTAL 7.2 6.3 - 8.2 g/dL [facility] ALBUMIN 4.7 3.6 - 5.1 g/dL [facility] GLOBULIN 2.5 2.0 - 3.8 g/dL (calc) [facility] ALBUMIN/GLOBULI N RATIO 1.9 1.0 - 2.5 (calc) [facility] BILIRUBIN, TOTAL 0.6 0.2 - 1.1 mg/dL [facility] ALKALINE PHOSPHATASE 65 36 - 128 U/L [facility] AST 18 12 - 32 U/L [facility] ALT 17 5 - 32 U/L [facility] Blood Blood / Unknown 06/24/2024 2 :24 PM EST 06/24/2024 2:25 PM EST Leanna Burt CREDIT DEPARTMENT MANAGER-C LAB - BLOOD DRAW Edited R esult - Final [facility] [address] [address], [facility] [address] [place] [address] * C TRACHOMATIS/N GONORRHOEAE RNA,TMA (10/10/2022 10:12 AM EDT) CHLAMYDIA TRACHOMATIS RNA, TMA NOT DETECTED NOT DETECTED [facility] NEISSERIA GONORRHOEAE RNA, TMA NOT DETECTED NOT DETECTED [facility] COMMENT [facility] Urine Urine specimen / Unknown 10/10/2022 10:12 AM EDT 10/11/2022 6:57 AM EDT Narrative [facility] - 10/11/2022 8:16 PM EDT The analytical performance characteristics of this assay, when used to test SurePath(TM) specimens have been determined by [employer]. The modifications have not been cleared or approved by the FDA. This assay has been validated pursuant to the CLIA regulations and is used for clinical purposes. For additional information, please refer to https://education.[employer]/faq/UIZ570 (This link is being provided for information/ educational purposes only.) us Stephy Lacey MD LAB BODY FLUIDS AND STOOLS AMBULATORY Final Result Performing Organization Address City/[facility]/ZIP Co de Phone Number [facility] [address] [address], [facility] [address] [address] * HIV-1 & HIV-2 ANTIBODIES (06/09/2020 2:10 PM EST) [facility] HIV 1 AND 2 ANTIBODY SCREEN NEGATIVE NEGATIVE [facility] Comment: This assay is a 4th generation assay allowing for earlier detection of HIV infection by detecting the presence of the HIV-1 p24 antigen as well as the traditional antibodies to HIV type 1 (including group O) and type 2. Use of a 4th generation assay is the current CDC recommendation for HIV screening. Blood Blood / Unknown 06/09/2020 2 :10 PM EST 06/09/2020 3:22 PM EST [facility] - 06/09/2020 7:03 PM EST [employer], a member of [address] [address] Diver Helper - Cortney Rangel MD PT ID [id number] ORD# [id number] us Stephy Lacey MD LAB - BLOOD DRAW Fin al Result Performing Organization Address City/[facility]/ZIP Co de Phone Number [facility] [address], from Last 3 Months or Most Recently Relevant to Health Maintenance Insurance [employer] Member Subscriber Plan / Payer (Ef fective 2024-Present) Name:Magen Royal Relation to Subscriber:Self Name:Magen Royal Payer ID:[id number] Type:Indemnity Address: [facility] [address] [place] [address] Care Teams Archival Studies Professor Relationship Specialty Start Date End Date Leanna Burt FNP-C [facility] [place] [address] PCP - General Internal Medicine 10/24/22
--- OUTSIDE RECORDS SUMMARY | 2025-02-03 08:27 | XMS_ITS | Encounter Summary ---
Author Organization [facility] Address [address] [place] [phone] Phone Care Team Providers Care Manager Enrollment Name Role Phone Pcp, Unknown Primary Care Provider Unavailabl e Pcp, Unknown Primary Care Provider Unavailabl e Reason for Visit * Reason Onset Date Comments Referral 11/08/2024 Call Back & Loca te Referral in [facility] Needed Encounter Details Date Type Department Care Team (Late st Contact Info) Description 11/08/2024 Telephone [facility] [address] [place] [address] [place] [address] Unknown, Unknown, MD Referral (Call Back & [...] 2:40 PM EST Office Visit [facility] [address] [place] [address] Ramesh Spivey DO [address] [place] [address] [email or web address] documented as of this encounter Visit Diagnoses Not on filedocumented in this encounter Care Teams Manager Enrollment Relationship Specialty Start Date End Date Pcp, Unknown PCP - General 11/08/24 12/22/24 Pcp, Unknown PCP - General 12/23/24 documented as of this encounter Additional Source Comments The information contained in this document represents components of the legal health record. It is not the complete legal health record.[facility]
--- OUTSIDE RECORDS SUMMARY | 2025-02-03 08:27 | XMS_ITS | Clinical Summary ---
Author Organization [facility] Address [address] [place] [address] [place] [phone] Phone Care Team Providers Care Visual C Developer Name Role Phone Pcp, Unknown Primary Care Provider Unavailabl e Encounters Date Type Department Care Team Description 12/10/2024 Transcribe Orders [facility] [address] [place] [address] Leanna Burt NP Pituitary adenoma (Primary Dx) 11/08/2024 Telephone [facility] Endocrinology [address] [place] [address] Unknown, Unknown, MD Referral (Call Back & [...] PM EST Office Visit [facility] [address] [place] [address] Ramesh Spivey DO [address] [place] [address] Health Maintenance Due Date Last Done Comments [...] topic Medical Devices Not on file Insurance [facility] NON NSPG PCP RACHELLE CARRERA [employer] [employer] NON NSPG PCP SILVER [employer]ARITY [employer] [facility] NON NSPG PCP SILVER [employer]ITY CONNE[employer] [facility] NON NSPG PCP SILVER CLARITY [employer] NON NSPG PCP SILVER [employer]ITY [employer] NON NSPG PCP [employer] Care Teams Visual C Developer Relationship Specialty Start Date End Date Pcp, Unknown PCP - General 12/23/24 Additional Source Comments The information contained in this document represents components of the legal health record. It is not the complete legal health record.[facility]
[2025-02-03 10:46] LABS: Creatinine, mg/dL 189.44
[2025-02-03 11:12] LABS: Free T4 (Free Thyroxine) 1.04 ng/dL (0.71-1.85); Thyroid Stimulating Hormone 0.35 uIU/mL (0.32-4.0)
[2025-02-03 11:49] LABS: Total Volume 24 Hour Urine 775 mL
[2025-02-04 15:08] LABS: Follicle Stimulating Hormone 5.1 mIU/mL
[2025-02-08 00:14] LABS: IGF-1 (Somatomedin C) 260 ng/mL (108-548); IGF-1 Z Score (Female) -0.1 SD (-2.0 - +2.0)
[2025-02-10 20:52] LABS: Estradiol Ultra Sensitive 21 pg/mL
[2025-02-11 21:30] LABS: Total Volume, 24 Hr Urine 775 mL
== END 2025-02-03 08:18 | disposition home or self-care (01) ==
LOC: HO.LAB 08:17
PROVIDERS: Visit Provider Student in an Organized Health Care Education/Training Program
DX: D35.2 Benign neoplasm of pituitary gland (principal)
CPT/HCPCS: 36415; 82024; 82530; 82533; 82570; 82627; 82670; 83001; 83002; 83003; 84146; 84305; 84439; 84443